=== PATIENT | female | born 1985 | race American Indian/Alaskan Native ===

== ENCOUNTER 2018-03-20 09:44 | Observation (INO) | payer MEDICAID ==
[2018-03-20] MEDS ORDERED: COLACE PO PRN (09:53)
[2018-03-20] MEDS ORDERED: TYLENOL PO PRN (09:53)
[2018-03-20] MEDS ORDERED: ZOFRAN IV PRN (09:53)
[2018-03-20] MEDS ORDERED: PRENATAL VITAMIN PO SCH (10:00)
[2018-03-20 10:52] LABS: Basophils % (Auto) 0.3 % (0.0-1.8); Eosinophils # (Auto) 0.1 K/mm3 (0.0-0.4); Eosinophils % (Auto) 1.3 % (0.0-4.3); Hematocrit 30.6 % (30.3-42.9); Lymphocytes # (Auto) 1.5 K/mm3 (1.2-5.4); Lymphocytes % (Auto) 22.9 % (13.4-35.0); Mean Corpuscular HGB Conc 33 % (30-34); Mean Corpuscular Volume 77 fl (79-97); Monocytes # (Auto) 0.6 K/mm3 (0.0-0.8); Monocytes % (Auto) 9.4 % (0.0-7.3); Platelet Count 235 K/mm3 (140-440); Red Blood Count 3.97 M/mm3 (3.65-5.03); Red Cell Distribution Width 15.2 % (13.2-15.2)
[2018-03-20 10:57] LABS: Mean Corpuscular Hemoglobin 25 pg (28-32)
[2018-03-20 11:07] VITALS: BP 131/79
[2018-03-20] MEDS: LACTATED RINGERS 1,000 ML IV SCH ×2 (11:24→12:22)
--- NOTE | 2018-03-21 07:22 | Ultrasound Report ---
BIOPHYSICAL PROFILE: INDICATION: well being. COMPARISON: None similar at this institution. TECHNIQUE: Transabdominal ultrasound with Doppler interrogation. 2 - breathing movements 2 - movements 2 - posture and tone 2 - Qualitative amniotic fluid volume 8 - TOTAL SCORE OF POSSIBLE 8 Heart Rate (bpm) 136 CONCLUSION: Findings, as above.
== END 2018-03-20 14:33 | disposition home or self-care (01) ==
LOC: INTOOBSV 09:44 → LD 09:44
PROVIDERS: ADMIT Obstetrics & Gynecology; ATTEND Obstetrics & Gynecology
DX: O11.3 Pre-existing hypertension with pre-eclampsia, third trimester (principal); Z3A.37 37 weeks gestation of pregnancy
CPT/HCPCS: 36415; 59025; 76819; 85025; 86850; 86900; 86901; 96360; 96361; G0378; G0379; J7120

== ENCOUNTER 2018-03-30 20:34 | Inpatient (IN) | payer MEDICAID ==
[2018-03-30] MEDS ORDERED: ePHEDrine SULFATE IV PRN (20:46)
[2018-03-30] MEDS ORDERED: XYLOCAINE 2% INFILTRATI ONE (20:46)
[2018-03-30] MEDS ORDERED: CERVIDIL VG ONE (20:46)
[2018-03-30] MEDS ORDERED: ZOFRAN IV PRN (20:46)
[2018-03-30] MEDS ORDERED: BRETHINE SUB-Q PRN (20:46)
[2018-03-30] MEDS ORDERED: MINERAL OIL PO PRN (20:46)
[2018-03-30] MEDS ORDERED: PITOCin/NS 20 UNIT/1000ML DRIP 20 UNITS/1,000 ML BAG IV SCH (21:00)
[2018-03-30] MEDS: NORMODYNE PO SCH (22:05)
[2018-03-30 22:09] LABS: Hematocrit 27.6 % (30.3-42.9); Hemoglobin 9.3 gm/dl (10.1-14.3); Mean Corpuscular HGB Conc 34 % (30-34); Mean Corpuscular Volume 76 fl (79-97); Platelet Count 232 K/mm3 (140-440); Red Blood Count 3.64 M/mm3 (3.65-5.03); Red Cell Distribution Width 15.2 % (13.2-15.2)
[2018-03-30 22:19] LABS: Mean Corpuscular Hemoglobin 26 pg (28-32)
[2018-03-30 22:26] LABS: Alanine Aminotransferase 6 units/L (7-56)
[2018-03-30 22:47] LABS: Bacteria,Urine 1+ /HPF (Negative); Bilirubin,Urine NEG (Negative); Blood,Urine NEG (Negative); Color,Urine Yellow (Yellow); Mucus,Urine FEW /HPF; Protein,Urine <15 mg/dL mg/dL (Negative)
[2018-03-30 23:04] LABS: Uric Acid 4.6 mg/dL (3.5-7.6)
[2018-03-31] MEDS: AMBIEN PO PRN ×2 (00:27→22:19)
--- NOTE | 2018-03-31 06:40 | History and Physical Report ---
History of Present Illness Date of examination: 03/31/18 (pt presents for IOL CHtn) Date of admission: 03/30/18 20:34 History of present illness: EDC Confirmation: 04/07/2018 Gestational Age: 11 3/7 weeks Past History : 4 Term Births: 3 Living Children: 3 Para: 3 # 1 Delivery date: 07/20/2003 Weeks Gestation: 40 Delivery type: Anesthesia type: epidural Delivery location: [facility] [place] Infant Sex: Female weight: 7-8 # 2 Delivery date: 06/22/2004 Weeks Gestation: 40 Delivery type: Anesthesia type: none Delivery location: [facility] Sex: Female weight: 7-6 # 3 Delivery date: 03/07/2006 Weeks Gestation: 40 Delivery type: Anesthesia type: none Delivery location: [facility] [place] Infant Sex: Male Past Medical History: HTN--dx 2016, was on Lorsaten High choles--was on Lipitor Past Surgical History: negative Past Medical History Anesthesia Complications: negative Anemia: negative Autoimmune Disorder: negative Bleeding Disorder: negative Blood Transfusions: negative Breast Disease: negative Diabetes: negative Heart Disease: negative Hypertension: negative Hepatitis/Liver Disease: negative Kidney Disease/UTI: negative Neurologic/Epilepsy/Migraines: negative Phlebitis/Varicosities: negative Psychiatric: negative Pulmonary Disease/Asthma: negative Thyroid Disease: negative Hospitalizations: negative Surgery (Non-order entry representative): negative Abnormal PAP: negative ESTEFANÍA Exposure: negative Infertility: negative Uterine Anomaly: negative Uterine Surgery (not C/S): negative Other Gynecologic Problems: negative Infection History Hx of STD: none HIV Risk Eval: low risk Hepatitis B Risk Eval: low risk Personal hx. of genital herpes: no Partner hx. of genital herpes: no Rash, Viral, or Febrile illness since last LMP? no Varicella/Chicken Pox Status: Unknown TB Risk: no Genetic History Congenital Heart Defect: Mom: yes Dad: no Comments: daughter repaired VSD Alexandra Disease: Mom: no Dad: no Thalassemia Mom: no Dad: no Neural Tube Defect Mom: no Dad: no Down's Syndrome Mom: no Dad: no Jamir-Sachs Mom: no Dad: no Sickle Cell Disease/Trait Mom: no Dad: no Hemophilia Mom: no Dad: no Muscular Dystrophy Mom: no Dad: no Cystic Fibrosis Mom: no Dad: no Shane Chorea Mom: no Dad: no Mental Retardation Mom: no Dad: no Fragile X Mom: no Dad: no Other Genetic/Chromosomal Disorder Mom: no Dad: no Child w/other defect Mom: yes Dad: no Comments: nephew undescended testis, darryl gray Comments/Counseling: ambiguous gentalia mat nephew Enviromental Exposures Xray Exposure: no Medication, drug, or alcohol use since LMP: no Chemical/Other Exposure: no Exposure to Cat Liter: no Hx of Parvovirus (Fifth Disease): no Current Allergies (reviewed today): No known allergies Past History - Obstetrical History Expected Date of Delivery: 04/07/18 Actual Gestation: 39 Week(s) 0 Day(s) : 4 Para: 3 Hx # Term Pregnancies: 3 Number of Living Children: 3 Medications and Allergies Allergies Allergy/AdvReac Type Severity Reaction Status Date / Time No Known Allergies Allergy Verified 03/20/18 10:43 Home Medications Medication Instructions Recorded Confirmed Last Taken Type Aspirin 81 mg PO QDAY 03/30/18 03/30/18 03/30/18 10:00 History Labetalol [Normodyne] 200 mg PO BID 03/30/18 03/30/18 03/30/18 10:00 History Pnv 29-1 Tablet 1 tab PO QDAY 03/30/18 03/30/18 03/30/18 10:00 History Active Meds: Active Medications Ephedrine Sulfate (Ephedrine Sulfate) 10 mg IV Q2M PRN PRN Reason: Hypotension Lactated Ringer's (Lactated Ringers) 1,000 mls @ 125 mls/hr IV DIRECT NESTOR Oxytocin/Sodium Chloride (Pitocin/Ns 20 Unit/1000ml Drip) 20 units in 1,000 mls @ 125 mls/hr IV DIRECT NESTOR Oxytocin/Sodium Chloride (Pitocin/Ns 30 Unit/500ml) 30 units in 500 mls @ 4 mls /hr IV TITR NESTOR; Protocol Labetalol HCl (Normodyne) 200 mg PO BID NESTOR Last Admin: 03/30/18 22:05 Dose: 200 mg Mineral Oil (Mineral Oil) 30 ml PO QHS PRN PRN Reason: Constipation Ondansetron HCl (Zofran) 4 mg IV Q8H PRN PRN Reason: Nausea And Vomiting Terbutaline Sulfate (Brethine) 0.25 mg SUB-Q ONCE PRN PRN Reason: Hyperstimulation/Hypertonicity Zolpidem Tartrate (Ambien) 10 mg PO QHS PRN PRN Reason: Insomnia Last Admin: 03/31/18 00:27 Dose: 10 mg - Vital Signs Vital signs: Vital Signs Pulse BP 94 H 134/84 03/30/18 21:17 03/30/18 21:17 Temp Pulse Resp BP Pulse Ox 98.2 F 63 18 128/78 78 L 03/30/18 21:48 03/31/18 00:54 03/30/18 21:48 03/30/18 23:50 03/31/18 00:54 - Physical Exam Breasts: Positive: deferred Cardiovascular: Regular rate, Normal S1, Normal S2 Lungs: Positive: Normal air movement Abdomen: Positive: normal appearance, soft, normal bowel sounds. Negative: distention, tenderness Vulva: both: normal Vagina: Positive: normal moisture. Negative: discharge Cervix: Negative: lesion, discharge Uterus: Positive: normal size, normal contour Adnexa: both: normal Anus/Rectum: Positive: normal perianal skin, heme negative. Negative: rectal mass, hemorrhoids Extremities: Positive: edema Deep Tendon Reflex Grade: Normal +2 - Obstetrical FHR: category 1 Uterine Contraction Monitor Mode: External Cervical Dilatation: 0 (cervidil) Cervical Effacement Percentage: 0 station: -3 Uterine Contraction Pattern: Irregular Uterine Contraction Intensity: Mild Results Result Diagrams: 03/30/18 21:47 03/30/18 21:47 Abnormal lab results 03/30/18 03/30/18 Range/Units 21:47 21:47 RBC 3.64 L (3.65-5.03) M/mm3 Hgb 9.3 L (10.1-14.3) gm/dl Hct 27.6 L (30.3-42.9) % MCV 76 L (79-97) fl MCH 26 L (28-32) pg Creatinine 0.5 L (0.7-1.2) mg/dL ALT 6 L (7-56) units/L Lactate Dehydrogenase 201 H (91-180) units/L All other labs normal. Strep Gp B SRIKANTH Negative February IOB labs done in office 09/19/17 HBsAg Screen Negative Negative *1 RPR Non Reactive Non Reactive *2 Rubella Antibodies, IgG 2.30 index Immune >0.99 *3 Non-immune <0.90 Equivocal 0.90 - 0.99 Immune >0.99 ABO Grouping O *4 Rh Factor Positive *5 Please note: Prior records for this patient's ABO / Rh type are not available for additional verification. Antibody Screen Negative Negative *6 WBC 8.2 x10E3/uL 3.4-10.8 *7 RBC 4.64 x10E6/uL 3.77-5.28 *8 Hemoglobin 12.7 g/dL 11.1-15.9 *9 Hematocrit 37.6 % 34.0-46.6 *10 MCV 81 fL 79-97 *11 MCH 27.4 pg 26.6-33.0 *12 MCHC 33.8 g/dL 31.5-35.7 *13 RDW 14.5 % 12.3-15.4 *14 Platelets 268 x10E3/uL 150-379 *15 Neutrophils 70 % Not Estab. *16 Lymphs 22 % Not Estab. *17 Monocytes 7 % Not Estab. *18 Eos 1 % Not Estab. *19 Basos 0 % Not Estab. *20 ! Immature Cells <No Reported Value> *21 Neutrophils (Absolute) 5.7 x10E3/uL 1.4-7.0 *22 Lymphs (Absolute) 1.8 x10E3/uL 0.7-3.1 *23 Monocytes(Absolute) 0.6 x10E3/uL 0.1-0.9 *24 Eos (Absolute) 0.1 x10E3/uL 0.0-0.4 *25 Baso (Absolute) 0.0 x10E3/uL 0.0-0.2 *26 ! Immature Granulocytes 0 % Not Estab. *27 ! Immature Grans (Abs) 0.0 x10E3/uL 0.0-0.1 *28 ! NRBC <No Reported Value> *29 Hematology Comments: <No Reported Value> *30 Tests: (2) SMN1 Copy Number Analysis ([id number]) ! Genetic Counselor: Not applicable *31 ! Client Specimen ID: Not applicable *32 ! Specimen Type: SPRCS *33 Peripheral Blood ! Specimen(s) Received: SPRCS *34 1 - Yellow (ACD) 10 ml round bottom tube(s) ! Clinical Data: SPRCS *35 Not Provided ! Ethnicity: SPR *36 Not Provided ! SMA Results: SPRCS *37 SMN1 copy number: 2 (Reduced Carrier Risk) ! Tests: (3) Cystic Fibrosis Profile ([id number]) ! CF, Screen Comment: *45 RESULTS: Negative for 32 mutations analyzed Tests: (4) Chlamydia/GC Amplification ([id number]) Chlamydia trachomatis, SRIKANTH Negative Negative *47 Neisseria gonorrhoeae, SRIKANTH Negative Negative *48 Tests: (5) HB Solu + Rflx Frac (227649) Hemoglobin (Hgb) Solubility Negative Negative *49 Tests: (6) Panel 025098 (030744) HIV Screen 4th Generation wRfx Non Reactive Non Reactive *50 Tests: (7) Varicella-Zoster V Ab, IgG (290057) ! Varicella Zoster IgG [L] <135 index Immune >165 *51 Negative <135 Equivocal 135 - 165 Positive >165 A positive result generally indicates exposure to the pathogen or administration of specific immunoglobulins, but it is not indication of active infection or stage of disease. Tests: (8) HCV Ab w/Rflx to Verification ([id number]) ! HCV Ab <0.1 s/co ratio 0.0-0.9 *52 Tests: (9) Comment: ([id number]) ! Comment: SPRCS *53 Non reactive HCV antibody screen is consistent with no HCV infection, unless recent infection is suspected or other evidence exists to indicate HCV infection. Tests: (10) Urine Culture, Routine ([id number]) Urine Culture, Routine Final report *54 Tests: (11) Result ([id number]) ! Result 1 No growth *55 Assessment and Plan - Patient Problems (1) Hypertension Onset Date: ~03/31/18 Current Visit: Yes Status: Acute Qualifiers: Hypertension type: essential hypertension Qualified Code(s): I10 - Essential (primary) hypertension Plan to address problem: 32yo @ 39 weeks here for IOL due to chronic hypertension. Will continue Labetalol 200mg po BID Close monitoring of blood pressures P: Will start pitocin per protocol after removal of cervidil. AM care and diet. to be consulted. (2) 39 weeks gestation of Onset Date: ~03/31/18 Current Visit: Yes Status: Acute
[2018-03-31] MEDS ORDERED: PITOCin/NS 30 UNIT/500ML 30 UNITS/500 ML BAG IV SCH (08:00)
--- NOTE | 2018-03-31 10:46 | Event Note ---
Date: 03/31/18 (will place second cervidil) Consulted with . Cervidil to be removed @ 1200 Will allow diet and ambulation. Plan will be to place 2nd cervidil unless there is significant cervical chg. Pt aware and agrees to POC Pt is aware of serial nature of induction.
[2018-03-31] MEDS: NORMODYNE PO SCH ×2 (11:22→22:19)
[2018-03-31] MEDS ORDERED: CERVIDIL VG ONE (13:00)
--- NOTE | 2018-03-31 16:12 | Event Note ---
Date: 03/31/18 (resting No c/o voiced) Pt and in room Discussed again multi day possibility of IOL. No cervical chg 2nd cervidil in place Will re-eval when removed @ 0100. Encouraged to be OOB in chair. Will have dinner and PM care later this evening. All questions addressed.
[2018-04-01] MEDS ORDERED: PITOCin/NS 30 UNIT/500ML 30,000 MILLIUNITS/500 ML BAG IV ONE (00:57)
[2018-04-01] MEDS ORDERED: PITOCin/NS 30 UNIT/500ML 30 UNITS/500 ML BAG IV SCH (02:00)
[2018-04-01] MEDS: LACTATED RINGERS 1,000 ML IV SCH ×3 (02:27→10:19)
[2018-04-01] MEDS: PITOCin/NS 30 UNIT/500ML 30 UNITS/500 ML BAG IV SCH ×3 (07:31→11:00)
--- NOTE | 2018-04-01 07:36 | Progress Note ---
Assessment and Plan pt resting VSS BP 146/82 Cat 1 strip CTX q4-6 Pit @ 4mu SVE 3,70,-1 Will begin protocol pit Pt unsure for desire for pain mgt made aware Re-eval as needed - Patient Problems (1) Hypertension Onset Date: ~03/31/18 Current Visit: Yes Status: Acute Qualifiers: Hypertension type: essential hypertension Qualified Code(s): I10 - Essential (primary) hypertension (2) 39 weeks gestation of Onset Date: ~03/31/18 Current Visit: Yes Status: Acute Subjective - Subjective Date of service: 04/01/18 (resting No complaints) Principal diagnosis: IUP @ 39w1d CHTN IOL Interval history: EDC Confirmation: 04/07/2018 Gestational Age: 11 3/7 weeks Past History : 4 Term Births: 3 Living Children: 3 Para: 3 # 1 Delivery date: 07/20/2003 Weeks Gestation: 40 Delivery type: Anesthesia type: epidural Delivery location: [facility] [place] Infant Sex: Female weight: 7-8 # 2 Delivery date: 06/22/2004 Weeks Gestation: 40 Delivery type: Anesthesia type: none Delivery location: [facility] Sex: Female weight: 7-6 # 3 Delivery date: 03/07/2006 Weeks Gestation: 40 Delivery type: Anesthesia type: none Delivery location: [facility] [place] Sex: Male Past Medical History: HTN--dx 2017, was on Lorsaten High choles--was on Lipitor Past Surgical History: negative Past Medical History Anesthesia Complications: negative Anemia: negative Autoimmune Disorder: negative Bleeding Disorder: negative Blood Transfusions: negative Breast Disease: negative Diabetes: negative Heart Disease: negative Hypertension: negative Hepatitis/Liver Disease: negative Kidney Disease/UTI: negative Neurologic/Epilepsy/Migraines: negative Phlebitis/Varicosities: negative Psychiatric: negative Pulmonary Disease/Asthma: negative Thyroid Disease: negative Hospitalizations: negative Surgery (Non-terminal gauger supervisor): negative Abnormal PAP: negative ESTEFANÍA Exposure: negative Infertility: negative Uterine Anomaly: negative Uterine Surgery (not C/S): negative Other Gynecologic Problems: negative Infection History Hx of STD: none HIV Risk Eval: low risk Hepatitis B Risk Eval: low risk Personal hx. of genital herpes: no Partner hx. of genital herpes: no Rash, Viral, or Febrile illness since last LMP? no Varicella/Chicken Pox Status: Unknown TB Risk: no Genetic History Congenital Heart Defect: Mom: yes Dad: no Comments: daughter repaired VSD Alexandra Disease: Mom: no Dad: no Thalassemia Mom: no Dad: no Neural Tube Defect Mom: no Dad: no Down's Syndrome Mom: no Dad: no Jamir-Sachs Mom: no Dad: no Sickle Cell Disease/Trait Mom: no Dad: no Hemophilia Mom: no Dad: no Muscular Dystrophy Mom: no Dad: no Cystic Fibrosis Mom: no Dad: no Shane Chorea Mom: no Dad: no Mental Retardation Mom: no Dad: no Fragile X Mom: no Dad: no Other Genetic/Chromosomal Disorder Mom: no Dad: no Child w/other defect Mom: yes Dad: no Comments: nephew undescended testis, darryl gray Comments/Counseling: ambiguous gentalia mat nephew Enviromental Exposures Xray Exposure: no Medication, drug, or alcohol use since LMP: no Chemical/Other Exposure: no Exposure to Cat Liter: no Hx of Parvovirus (Fifth Disease): no Current Allergies (reviewed today): No known allergies Patient reports: movement normal Objective - Vital Signs Vital Signs: Vital Signs - 12hr 03/31/18 03/31/18 03/31/18 20:00 20:12 20:21 Temperature Pulse Rate 91 H 74 Respiratory Rate Blood Pressure 138/86 O2 Sat by Pulse 0 L 60 L Oximetry 03/31/18 03/31/18 03/31/18 20:44 21:29 21:39 Temperature Pulse Rate 106 H 94 H 64 Respiratory Rate Blood Pressure 122/85 136/88 O2 Sat by Pulse 0 L Oximetry 03/31/18 03/31/18 03/31/18 22:15 22:19 22:49 Temperature Pulse Rate 96 H 96 H Respiratory Rate Blood Pressure 128/78 128/78 O2 Sat by Pulse 87 Oximetry 03/31/18 03/31/18 04/01/18 22:59 23:45 00:27 Temperature 98.5 F Pulse Rate 94 H 94 H Respiratory 20 Rate Blood Pressure 121/67 119/63 O2 Sat by Pulse Oximetry 04/01/18 04/01/18 04/01/18 00:30 00:33 00:57 Temperature Pulse Rate 93 H 54 L Respiratory Rate Blood Pressure 142/83 O2 Sat by Pulse 72 L 68 L Oximetry 04/01/18 04/01/18 04/01/18 02:27 02:32 02:37 Temperature Pulse Rate 87 91 H 92 H Respiratory Rate Blood Pressure 128/74 O2 Sat by Pulse 96 97 98 Oximetry 04/01/18 04/01/18 04/01/18 02:42 02:47 02:52 Temperature Pulse Rate 89 87 87 Respiratory Rate Blood Pressure O2 Sat by Pulse 97 96 97 Oximetry 04/01/18 04/01/18 04/01/18 02:54 02:57 03:00 Temperature Pulse Rate 87 85 83 Respiratory Rate Blood Pressure O2 Sat by Pulse 93 96 91 Oximetry 04/01/18 04/01/18 04/01/18 03:02 03:07 03:10 Temperature Pulse Rate 89 84 86 Respiratory Rate Blood Pressure O2 Sat by Pulse 98 98 93 Oximetry 04/01/18 04/01/18 04/01/18 03:12 03:15 03:17 Temperature Pulse Rate 90 85 94 H Respiratory Rate Blood Pressure O2 Sat by Pulse 97 92 100 Oximetry 04/01/18 04/01/18 04/01/18 03:20 03:22 03:27 Temperature Pulse Rate 90 93 H 88 Respiratory Rate Blood Pressure 138/89 O2 Sat by Pulse 96 96 Oximetry 04/01/18 04/01/18 04/01/18 03:29 03:32 03:34 Temperature Pulse Rate 86 89 87 Respiratory Rate Blood Pressure O2 Sat by Pulse 94 96 93 Oximetry 04/01/18 04/01/18 04/01/18 03:37 03:40 03:42 Temperature Pulse Rate 87 91 H 90 Respiratory Rate Blood Pressure O2 Sat by Pulse 95 92 97 Oximetry 04/01/18 04/01/18 04/01/18 03:45 03:47 03:52 Temperature Pulse Rate 92 H 95 H 86 Respiratory Rate Blood Pressure O2 Sat by Pulse 90 92 99 Oximetry 04/01/18 04/01/18 04/01/18 03:57 04:00 04:02 Temperature Pulse Rate 92 H 89 93 H Respiratory Rate Blood Pressure O2 Sat by Pulse 97 94 98 Oximetry 04/01/18 04/01/18 04/01/18 04:07 04:12 04:16 Temperature 98.7 F Pulse Rate 87 85 Respiratory 18 Rate Blood Pressure O2 Sat by Pulse 98 96 Oximetry 04/01/18 04/01/18 04/01/18 04:17 04:20 04:22 Temperature Pulse Rate 87 87 85 Respiratory Rate Blood Pressure 138/89 O2 Sat by Pulse 97 98 Oximetry 04/01/18 04/01/18 04/01/18 04:27 04:28 04:33 Temperature Pulse Rate 88 91 H 87 Respiratory Rate Blood Pressure O2 Sat by Pulse 98 90 96 Oximetry 04/01/18 04/01/18 04/01/18 04:38 04:39 04:43 Temperature Pulse Rate 87 87 87 Respiratory Rate Blood Pressure O2 Sat by Pulse 96 94 96 Oximetry 04/01/18 04/01/18 04/01/18 04:44 04:48 04:52 Temperature Pulse Rate 85 85 84 Respiratory Rate Blood Pressure O2 Sat by Pulse 93 97 91 Oximetry 04/01/18 04/01/18 04/01/18 04:53 04:58 05:03 Temperature Pulse Rate 85 87 83 Respiratory Rate Blood Pressure O2 Sat by Pulse 97 96 99 Oximetry 04/01/18 04/01/18 04/01/18 05:08 05:09 05:13 Temperature Pulse Rate 89 79 92 H Respiratory Rate Blood Pressure O2 Sat by Pulse 95 91 94 Oximetry 04/01/18 04/01/18 04/01/18 05:14 05:18 05:19 Temperature Pulse Rate 89 87 83 Respiratory Rate Blood Pressure 131/82 O2 Sat by Pulse 94 96 94 Oximetry 04/01/18 04/01/18 04/01/18 05:23 05:24 05:28 Temperature Pulse Rate 85 87 87 Respiratory Rate Blood Pressure O2 Sat by Pulse 98 89 97 Oximetry 04/01/18 04/01/18 04/01/18 05:33 05:38 05:43 Temperature Pulse Rate 93 H 91 H 96 H Respiratory Rate Blood Pressure O2 Sat by Pulse 98 97 97 Oximetry 04/01/18 04/01/18 04/01/18 05:48 05:53 05:58 Temperature Pulse Rate 90 91 H 91 H Respiratory Rate Blood Pressure O2 Sat by Pulse 97 97 97 Oximetry 04/01/18 04/01/18 04/01/18 06:03 06:08 06:13 Temperature Pulse Rate 98 H 89 93 H Respiratory Rate Blood Pressure O2 Sat by Pulse 96 98 97 Oximetry 04/01/18 04/01/18 04/01/18 06:18 06:20 06:22 Temperature Pulse Rate 90 90 105 H Respiratory Rate Blood Pressure 134/84 O2 Sat by Pulse 97 74 L Oximetry 04/01/18 04/01/18 04/01/18 06:25 06:30 06:35 Temperature Pulse Rate 53 L 92 H 95 H Respiratory Rate Blood Pressure O2 Sat by Pulse 97 98 97 Oximetry 04/01/18 04/01/18 04/01/18 06:40 06:45 06:50 Temperature Pulse Rate 89 93 H 92 H Respiratory Rate Blood Pressure O2 Sat by Pulse 92 99 96 Oximetry 04/01/18 04/01/18 04/01/18 06:53 06:55 07:20 Temperature Pulse Rate 86 96 H 97 H Respiratory Rate Blood Pressure 142/86 O2 Sat by Pulse 94 98 Oximetry - Exam Breasts: deferred Cardiovascular: Regular rate Lungs: Normal air movement Abdomen: Present: normal appearance, soft. Absent: distention, tenderness Uterus: Present: normal FHR: auscultation normal, category 1 Uterine Contraction Monitor Mode: External Cervical Dilatation: 3 Cervical Effacement Percentage: 70 station: -1 Uterine Contraction Pattern: Regular Uterine Contraction Intensity: Moderate Extremities: normal Deep Tendon Reflex Grade: Normal +2 - Labs Labs: Abnormal Labs 03/30/18 03/30/18 21:47 21:47 RBC 3.64 L Hgb 9.3 L Hct 27.6 L MCV 76 L MCH 26 L Creatinine 0.5 L ALT 6 L Lactate Dehydrogenase 201 H Laboratory Results - last 24 hr 03/30/18 21:47 RPR Nonreactive
[2018-04-01] MEDS ORDERED: SUBLIMAZE IV PRN (08:46)
--- NOTE | 2018-04-01 08:50 | Progress Note ---
Assessment and Plan pt tolerating labor well SVE 4,100,-1 Internals placed Minimal clear fluid with ROM. Pit @ 8mu Re-eval as needed. - Patient Problems (1) Hypertension Onset Date: ~03/31/18 Current Visit: Yes Status: Acute Qualifiers: Hypertension type: essential hypertension Qualified Code(s): I10 - Essential (primary) hypertension (2) 39 weeks gestation of Onset Date: ~03/31/18 Current Visit: Yes Status: Acute Subjective - Subjective Date of service: 04/01/18 (pt tolerated procedure well) Principal diagnosis: IUP @ 39w1d CHTN IOL Interval history: EDC Confirmation: 04/07/2018 Gestational Age: 11 3/7 weeks Past History : 4 Term Births: 3 Living Children: 3 Para: 3 # 1 Delivery date: 07/20/2003 Weeks Gestation: 40 Delivery type: Anesthesia type: epidural Delivery location: [facility] [place] Infant Sex: Female weight: 7-8 # 2 Delivery date: 06/22/2004 Weeks Gestation: 40 Delivery type: Anesthesia type: none Delivery location: [facility] Sex: Female weight: 7-6 # 3 Delivery date: 03/07/2006 Weeks Gestation: 40 Delivery type: Anesthesia type: none Delivery location: [facility] [place] Infant Sex: Male Past Medical History: HTN--dx 2016, was on [place] High choles--was on Lipitor Past Surgical History: negative Past Medical History Anesthesia Complications: negative Anemia: negative Autoimmune Disorder: negative Bleeding Disorder: negative Blood Transfusions: negative Breast Disease: negative Diabetes: negative Heart Disease: negative Hypertension: negative Hepatitis/Liver Disease: negative Kidney Disease/UTI: negative Neurologic/Epilepsy/Migraines: negative Phlebitis/Varicosities: negative Psychiatric: negative Pulmonary Disease/Asthma: negative Thyroid Disease: negative Hospitalizations: negative Surgery (Non-wreath and garland maker hand): negative Abnormal PAP: negative ESTEFANÍA Exposure: negative Infertility: negative Uterine Anomaly: negative Uterine Surgery (not C/S): negative Other Gynecologic Problems: negative Infection History Hx of STD: none HIV Risk Eval: low risk Hepatitis B Risk Eval: low risk Personal hx. of genital herpes: no Partner hx. of genital herpes: no Rash, Viral, or Febrile illness since last LMP? no Varicella/Chicken Pox Status: Unknown TB Risk: no Genetic History Congenital Heart Defect: Mom: yes Dad: no Comments: daughter repaired VSD Alexandra Disease: Mom: no Dad: no Thalassemia Mom: no Dad: no Neural Tube Defect Mom: no Dad: no Down's Syndrome Mom: no Dad: no Jamir-Sachs Mom: no Dad: no Sickle Cell Disease/Trait Mom: no Dad: no Hemophilia Mom: no Dad: no Muscular Dystrophy Mom: no Dad: no Cystic Fibrosis Mom: no Dad: no [place] Chorea Mom: no Dad: no Mental Retardation Mom: no Dad: no Fragile X Mom: no Dad: no Other Genetic/Chromosomal Disorder Mom: no Dad: no Child w/other defect Mom: yes Dad: no Comments: nephew undescended testis, darryl gray Comments/Counseling: ambiguous gentalia mat nephew Enviromental Exposures Xray Exposure: no Medication, drug, or alcohol use since LMP: no Chemical/Other Exposure: no Exposure to Cat Liter: no Hx of Parvovirus (Fifth Disease): no Current Allergies (reviewed today): No known allergies Patient reports: movement normal Objective - Vital Signs Vital Signs: Vital Signs - 12hr 03/31/18 03/31/18 03/31/18 21:29 21:39 22:15 Temperature Pulse Rate 94 H 64 96 H Respiratory Rate Blood Pressure 136/88 128/78 Blood Pressure [Right] O2 Sat by Pulse 0 L Oximetry 03/31/18 03/31/18 03/31/18 22:19 22:49 22:59 Temperature Pulse Rate 96 H 94 H Respiratory Rate Blood Pressure 128/78 121/67 Blood Pressure [Right] O2 Sat by Pulse 87 Oximetry 03/31/18 04/01/18 04/01/18 23:45 00:27 00:30 Temperature 98.5 F Pulse Rate 94 H 93 H Respiratory 20 Rate Blood Pressure 119/63 142/83 Blood Pressure [Right] O2 Sat by Pulse Oximetry 04/01/18 04/01/18 04/01/18 00:33 00:57 02:27 Temperature Pulse Rate 54 L 87 Respiratory Rate Blood Pressure 128/74 Blood Pressure [Right] O2 Sat by Pulse 72 L 68 L 96 Oximetry 04/01/18 04/01/18 04/01/18 02:32 02:37 02:42 Temperature Pulse Rate 91 H 92 H 89 Respiratory Rate Blood Pressure Blood Pressure [Right] O2 Sat by Pulse 97 98 97 Oximetry 04/01/18 04/01/1804/01/18 02:47 02:52 02:54 Temperature Pulse Rate 87 87 87 Respiratory Rate Blood Pressure Blood Pressure [Right] O2 Sat by Pulse 96 97 93 Oximetry 04/01/18 04/01/18 04/01/18 02:57 03:00 03:02 Temperature Pulse Rate 85 83 89 Respiratory Rate Blood Pressure Blood Pressure [Right] O2 Sat by Pulse 96 91 98 Oximetry 04/01/18 04/01/18 04/01/18 03:07 03:10 03:12 Temperature Pulse Rate 84 86 90 Respiratory Rate Blood Pressure Blood Pressure [Right] O2 Sat by Pulse 98 93 97 Oximetry 04/01/18 04/01/18 04/01/18 03:15 03:17 03:20 Temperature Pulse Rate 85 94 H 90 Respiratory Rate Blood Pressure 138/89 Blood Pressure [Right] O2 Sat by Pulse 92 100 Oximetry 04/01/18 04/01/18 04/01/18 03:22 03:27 03:29 Temperature Pulse Rate 93 H 88 86 Respiratory Rate Blood Pressure Blood Pressure [Right] O2 Sat by Pulse 96 96 94 Oximetry 04/01/18 04/01/18 04/01/18 03:32 03:34 03:37 Temperature Pulse Rate 89 87 87 Respiratory Rate Blood Pressure Blood Pressure [Right] O2 Sat by Pulse 96 93 95 Oximetry 04/01/18 04/01/18 04/01/18 03:40 03:42 03:45 Temperature Pulse Rate 91 H 90 92 H Respiratory Rate Blood Pressure Blood Pressure [Right] O2 Sat by Pulse 92 97 90 Oximetry 04/01/18 04/01/18 04/01/18 03:47 03:52 03:57 Temperature Pulse Rate 95 H 86 92 H Respiratory Rate Blood Pressure Blood Pressure [Right] O2 Sat by Pulse 92 99 97 Oximetry 04/01/18 04/01/18 04/01/18 04:00 04:02 04:07 Temperature Pulse Rate 89 93 H 87 Respiratory Rate Blood Pressure Blood Pressure [Right] O2 Sat by Pulse 94 98 98 Oximetry 04/01/18 04/01/18 04/01/18 04:12 04:16 04:17 Temperature 98.7 F Pulse Rate 85 87 Respiratory 18 Rate Blood Pressure Blood Pressure [Right] O2 Sat by Pulse 96 97 Oximetry 04/01/18 04/01/18 04/01/18 04:20 04:22 04:27 Temperature Pulse Rate 87 85 88 Respiratory Rate Blood Pressure 138/89 Blood Pressure [Right] O2 Sat by Pulse 98 98 Oximetry 04/01/18 04/01/18 04/01/18 04:28 04:33 04:38 Temperature Pulse Rate 91 H 87 87 Respiratory Rate Blood Pressure Blood Pressure [Right] O2 Sat by Pulse 90 96 96 Oximetry 04/01/18 04/01/18 04/01/18 04:39 04:43 04:44 Temperature Pulse Rate 87 87 85 Respiratory Rate Blood Pressure Blood Pressure [Right] O2 Sat by Pulse 94 96 93 Oximetry 04/01/18 04/01/18 04/01/18 04:48 04:52 04:53 Temperature Pulse Rate 85 84 85 Respiratory Rate Blood Pressure Blood Pressure [Right] O2 Sat by Pulse 97 91 97 Oximetry 04/01/18 04/01/18 04/01/18 04:58 05:03 05:08 Temperature Pulse Rate 87 83 89 Respiratory Rate Blood Pressure Blood Pressure [Right] O2 Sat by Pulse 96 99 95 Oximetry 04/01/18 04/01/18 04/01/18 05:09 05:13 05:14 Temperature Pulse Rate 79 92 H 89 Respiratory Rate Blood Pressure Blood Pressure [Right] O2 Sat by Pulse 91 94 94 Oximetry 04/01/18 04/01/18 04/01/18 05:18 05:19 05:23 Temperature Pulse Rate 87 83 85 Respiratory Rate Blood Pressure 131/82 Blood Pressure [Right] O2 Sat by Pulse 96 94 98 Oximetry 04/01/18 04/01/18 04/01/18 05:24 05:28 05:33 Temperature Pulse Rate 87 87 93 H Respiratory Rate Blood Pressure Blood Pressure [Right] O2 Sat by Pulse 89 97 98 Oximetry 04/01/18 04/01/18 04/01/18 05:38 05:43 05:48 Temperature Pulse Rate 91 H 96 H 90 Respiratory Rate Blood Pressure Blood Pressure [Right] O2 Sat by Pulse 97 97 97 Oximetry 04/01/18 04/01/18 04/01/18 05:53 05:58 06:03 Temperature Pulse Rate 91 H 91 H 98 H Respiratory Rate Blood Pressure Blood Pressure [Right] O2 Sat by Pulse 97 97 96 Oximetry 04/01/18 04/01/18 04/01/18 06:08 06:13 06:18 Temperature Pulse Rate 89 93 H 90 Respiratory Rate Blood Pressure Blood Pressure [Right] O2 Sat by Pulse 98 97 97 Oximetry 04/01/18 04/01/18 04/01/18 06:20 06:22 06:25 Temperature Pulse Rate 90 105 H 53 L Respiratory Rate Blood Pressure 134/84 Blood Pressure [Right] O2 Sat by Pulse 74 L 97 Oximetry 04/01/18 04/01/18 04/01/18 06:30 06:35 06:40 Temperature Pulse Rate 92 H 95 H 89 Respiratory Rate Blood Pressure Blood Pressure [Right] O2 Sat by Pulse 98 97 92 Oximetry 04/01/18 04/01/18 04/01/18 06:45 06:50 06:53 Temperature Pulse Rate 93 H 92 H 86 Respiratory Rate Blood Pressure Blood Pressure [Right] O2 Sat by Pulse 99 96 94 Oximetry 04/01/18 04/01/18 04/01/18 06:55 07:20 07:29 Temperature 98.5 F Pulse Rate 96 H 97 H 91 H Respiratory 18 Rate Blood Pressure 142/86 Blood Pressure 128/85 [Right] O2 Sat by Pulse 98 97 Oximetry 04/01/18 04/01/18 04/01/18 07:32 07:37 07:38 Temperature Pulse Rate 94 H 101 H 55 L Respiratory Rate Blood Pressure 128/85 Blood Pressure [Right] O2 Sat by Pulse 98 97 77 L Oximetry 04/01/18 04/01/18 04/01/18 08:21 08:27 08:30 Temperature Pulse Rate 102 H 86 81 Respiratory Rate Blood Pressure 128/86 Blood Pressure [Right] O2 Sat by Pulse 85 80 L Oximetry - Exam Breasts: deferred Cardiovascular: Regular rate Lungs: Normal air movement Abdomen: Present: normal appearance, soft. Absent: distention, tenderness Uterus: Present: normal FHR: auscultation normal, category 1 Uterine Contraction Monitor Mode: Internal Cervical Dilatation: 4 (ROM clear) Cervical Effacement Percentage: 100 (ISE & IUPC placed) station: -1 Uterine Contraction Pattern: Regular Uterine Tone Measurement Phase: Resting Uterine Contraction Intensity: Moderate Extremities: normal Deep Tendon Reflex Grade: Normal +2 - Labs Labs: Abnormal Labs 03/30/18 03/30/18 21:47 21:47 RBC 3.64 L Hgb 9.3 L Hct 27.6 L MCV 76 L MCH 26 L Creatinine 0.5 L ALT 6 L Lactate Dehydrogenase 201 H Laboratory Results - last 24 hr 03/30/18 21:47 RPR Nonreactive
[2018-04-01] MEDS: NORMODYNE PO SCH ×2 (10:04→21:54)
[2018-04-01] MEDS ORDERED: ePHEDrine SULFATE IV PRN (10:45)
[2018-04-01] MEDS ORDERED: NARCAN 2 MG/2 ML IV PRN (10:45)
--- NOTE | 2018-04-01 10:47 | Anesthesia Consultation ---
Anesthesia Consult and Med Hx Date of service: 04/01/18 - Airway Anesthetic Teeth Evaluation: Good ROM Head & Neck: Adequate Mental/Hyoid Distance: Adequate Mallampati Class: Class III Intubation Access Assessment: Possibly Difficult - Pulmonary Exam CTA: Yes - Cardiac Exam Cardiac Exam: RRR - Pre-Operative Health Status ASA Pre-Surgery Classification: ASA3 Proposed Anesthetic Plan: Epidural, Spinal - Pulmonary Hx Smoking: No Hx Asthma: No COPD: No Hx Pneumonia: No - Cardiovascular System Hx Hypertension: Yes - Central Nervous System Hx Seizures: No Hx Psychiatric Problems: No - Endocrine Hx Renal Disease: No Hx End Stage Renal Disease: No Hx Hypothyroidism: No Hx Hyperthyroidism: No - Hematic Hx Anemia: No Hx Sickle Cell Disease: No - Other Systems Hx Alcohol Use: No
--- NOTE | 2018-04-01 10:57 | Progress Note ---
Assessment and Plan Comfortable with epidural SVE 7,100,0 Anticipate delivery - Patient Problems (1) Hypertension Onset Date: ~03/31/18 Current Visit: Yes Status: Acute Qualifiers: Hypertension type: essential hypertension Qualified Code(s): I10 - Essential (primary) hypertension (2) 39 weeks gestation of Onset Date: ~03/31/18 Current Visit: Yes Status: Acute Subjective - Subjective Date of service: 04/01/18 (comfortable with epidural) Principal diagnosis: IUP @ 39w1d CHTN IOL Interval history: EDC Confirmation: 04/07/2018 Gestational Age: 11 3/7 weeks Past History : 4 Term Births: 3 Living Children: 3 Para: 3 # 1 Delivery date: 07/20/2003 Weeks Gestation: 40 Delivery type: Anesthesia type: epidural Delivery location: [facility] Sex: Female weight: 7-8 # 2 Delivery date: 06/22/2004 Weeks Gestation: 40 Delivery type: Anesthesia type: none Delivery location: [facility] Infant Sex: Female weight: 7-6 # 3 Delivery date: 03/07/2006 Weeks Gestation: 40 Delivery type: Anesthesia type: none Delivery location: [facility] Infant Sex: Male Past Medical History: HTN--dx 2017, was on [place] High choles--was on Lipitor Past Surgical History: negative Past Medical History Anesthesia Complications: negative Anemia: negative Autoimmune Disorder: negative Bleeding Disorder: negative Blood Transfusions: negative Breast Disease: negative Diabetes: negative Heart Disease: negative Hypertension: negative Hepatitis/Liver Disease: negative Kidney Disease/UTI: negative Neurologic/Epilepsy/Migraines: negative Phlebitis/Varicosities: negative Psychiatric: negative Pulmonary Disease/Asthma: negative Thyroid Disease: negative Hospitalizations: negative Surgery (Non-restaurant assistant manager): negative Abnormal PAP: negative ESTEFANÍA Exposure: negative Infertility: negative Uterine Anomaly: negative Uterine Surgery (not C/S): negative Other Gynecologic Problems: negative Infection History Hx of STD: none HIV Risk Eval: low risk Hepatitis B Risk Eval: low risk Personal hx. of genital herpes: no Partner hx. of genital herpes: no Rash, Viral, or Febrile illness since last LMP? no Varicella/Chicken Pox Status: Unknown TB Risk: no Genetic History Congenital Heart Defect: Mom: yes Dad: no Comments: daughter repaired VSD Alexandra Disease: Mom: no Dad: no Thalassemia Mom: no Dad: no Neural Tube Defect Mom: no Dad: no Down's Syndrome Mom: no Dad: no Jamir-Sachs Mom: no Dad: no Sickle Cell Disease/Trait Mom: no Dad: no Hemophilia Mom: no Dad: no Muscular Dystrophy Mom: no Dad: no Cystic Fibrosis Mom: no Dad: no [place] Chorea Mom: no Dad: no Mental Retardation Mom: no Dad: no Fragile X Mom: no Dad: no Other Genetic/Chromosomal Disorder Mom: no Dad: no Child w/other defect Mom: yes Dad: no Comments: nephew undescended testis, darryl gray Comments/Counseling: ambiguous gentalia mat nephew Enviromental Exposures Xray Exposure: no Medication, drug, or alcohol use since LMP: no Chemical/Other Exposure: no Exposure to Cat Liter: no Hx of Parvovirus (Fifth Disease): no Current Allergies (reviewed today): No known allergies Patient reports: movement normal Objective - Vital Signs Vital Signs: Vital Signs - 12hr 03/31/18 03/31/18 04/01/18 22:59 23:45 00:27 Temperature 98.5 F Pulse Rate 94 H 94 H Respiratory 20 Rate Blood Pressure 121/67 119/63 Blood Pressure [Right] O2 Sat by Pulse Oximetry 04/01/18 04/01/18 04/01/18 00:30 00:33 00:57 Temperature Pulse Rate 93 H 54 L Respiratory Rate Blood Pressure 142/83 Blood Pressure [Right] O2 Sat by Pulse 72 L 68 L Oximetry 04/01/18 04/01/18 04/01/18 02:27 02:32 02:37 Temperature Pulse Rate 87 91 H 92 H Respiratory Rate Blood Pressure 128/74 Blood Pressure [Right] O2 Sat by Pulse 96 97 98 Oximetry 04/01/18 04/01/18 04/01/18 02:42 02:47 02:52 Temperature Pulse Rate 89 87 87 Respiratory Rate Blood Pressure Blood Pressure [Right] O2 Sat by Pulse 97 96 97 Oximetry 04/01/18 04/01/18 04/01/18 02:54 02:57 03:00 Temperature Pulse Rate 87 85 83 Respiratory Rate Blood Pressure Blood Pressure [Right] O2 Sat by Pulse 93 96 91 Oximetry 04/01/18 04/01/18 04/01/18 03:02 03:07 03:10 Temperature Pulse Rate 89 84 86 Respiratory Rate Blood Pressure Blood Pressure [Right] O2 Sat by Pulse 98 98 93 Oximetry 04/01/18 04/01/18 04/01/18 03:12 03:15 03:17 Temperature Pulse Rate 90 85 94 H Respiratory Rate Blood Pressure Blood Pressure [Right] O2 Sat by Pulse 97 92 100 Oximetry 04/01/18 04/01/18 04/01/18 03:20 03:22 03:27 Temperature Pulse Rate 90 93 H 88 Respiratory Rate Blood Pressure 138/89 Blood Pressure [Right] O2 Sat by Pulse 96 96 Oximetry 04/01/18 04/01/18 04/01/18 03:29 03:32 03:34 Temperature Pulse Rate 86 89 87 Respiratory Rate Blood Pressure Blood Pressure [Right] O2 Sat by Pulse 94 96 93 Oximetry 04/01/18 04/01/18 04/01/18 03:37 03:40 03:42 Temperature Pulse Rate 87 91 H 90 Respiratory Rate Blood Pressure Blood Pressure [Right] O2 Sat by Pulse 95 92 97 Oximetry 04/01/18 04/01/18 04/01/18 03:45 03:47 03:52 Temperature Pulse Rate 92 H 95 H 86 Respiratory Rate Blood Pressure Blood Pressure [Right] O2 Sat by Pulse 90 92 99 Oximetry 04/01/18 04/01/18 04/01/18 03:57 04:00 04:02 Temperature Pulse Rate 92 H 89 93 H Respiratory Rate Blood Pressure Blood Pressure [Right] O2 Sat by Pulse 97 94 98 Oximetry 04/01/18 04/01/18 04/01/18 04:07 04:12 04:16 Temperature 98.7 F Pulse Rate 87 85 Respiratory 18 Rate Blood Pressure Blood Pressure [Right] O2 Sat by Pulse 98 96 Oximetry 04/01/18 04/01/18 04/01/18 04:17 04:20 04:22 Temperature Pulse Rate 87 87 85 Respiratory Rate Blood Pressure 138/89 Blood Pressure [Right] O2 Sat by Pulse 97 98 Oximetry 04/01/18 04/01/18 04/01/18 04:27 04:28 04:33 Temperature Pulse Rate 88 91 H 87 Respiratory Rate Blood Pressure Blood Pressure [Right] O2 Sat by Pulse 98 90 96 Oximetry 04/01/18 04/01/18 04/01/18 04:38 04:39 04:43 Temperature Pulse Rate 87 87 87 Respiratory Rate Blood Pressure Blood Pressure [Right] O2 Sat by Pulse 96 94 96 Oximetry 04/01/18 04/01/18 04/01/18 04:44 04:48 04:52 Temperature Pulse Rate 85 85 84 Respiratory Rate Blood Pressure Blood Pressure [Right] O2 Sat by Pulse 93 97 91 Oximetry 04/01/18 04/01/18 04/01/18 04:53 04:58 05:03 Temperature Pulse Rate 85 87 83 Respiratory Rate Blood Pressure Blood Pressure [Right] O2 Sat by Pulse 97 96 99 Oximetry 04/01/18 04/01/18 04/01/18 05:08 05:09 05:13 Temperature Pulse Rate 89 79 92 H Respiratory Rate Blood Pressure Blood Pressure [Right] O2 Sat by Pulse 95 91 94 Oximetry 04/01/18 04/01/18 04/01/18 05:14 05:18 05:19 Temperature Pulse Rate 89 87 83 Respiratory Rate Blood Pressure 131/82 Blood Pressure [Right] O2 Sat by Pulse 94 96 94 Oximetry 04/01/18 04/01/18 04/01/18 05:23 05:24 05:28 Temperature Pulse Rate 85 87 87 Respiratory Rate Blood Pressure Blood Pressure [Right] O2 Sat by Pulse 98 89 97 Oximetry 04/01/18 04/01/18 04/01/18 05:33 05:38 05:43 Temperature Pulse Rate 93 H 91 H 96 H Respiratory Rate Blood Pressure Blood Pressure [Right] O2 Sat by Pulse 98 97 97 Oximetry 04/01/18 04/01/18 04/01/18 05:48 05:53 05:58 Temperature Pulse Rate 90 91 H 91 H Respiratory Rate Blood Pressure Blood Pressure [Right] O2 Sat by Pulse 97 97 97 Oximetry 04/01/18 04/01/18 04/01/18 06:03 06:08 06:13 Temperature Pulse Rate 98 H 89 93 H Respiratory Rate Blood Pressure Blood Pressure [Right] O2 Sat by Pulse 96 98 97 Oximetry 04/01/18 04/01/18 04/01/18 06:18 06:20 06:22 Temperature Pulse Rate 90 90 105 H Respiratory Rate Blood Pressure 134/84 Blood Pressure [Right] O2 Sat by Pulse 97 74 L Oximetry 04/01/18 04/01/18 04/01/18 06:25 06:30 06:35 Temperature Pulse Rate 53 L 92 H 95 H Respiratory Rate Blood Pressure Blood Pressure [Right] O2 Sat by Pulse 97 98 97 Oximetry 04/01/18 04/01/18 04/01/18 06:40 06:45 06:50 Temperature Pulse Rate 89 93 H 92 H Respiratory Rate Blood Pressure Blood Pressure [Right] O2 Sat by Pulse 92 99 96 Oximetry 04/01/18 04/01/18 04/01/18 06:53 06:55 07:20 Temperature Pulse Rate 86 96 H 97 H Respiratory Rate Blood Pressure 142/86 Blood Pressure [Right] O2 Sat by Pulse 94 98 Oximetry 04/01/18 04/01/18 04/01/18 07:29 07:32 07:37 Temperature 98.5 F Pulse Rate 91 H 94 H 101 H Respiratory 18 Rate Blood Pressure 128/85 Blood Pressure 128/85 [Right] O2 Sat by Pulse 97 98 97 Oximetry 04/01/18 04/01/18 04/01/18 07:38 08:21 08:27 Temperature Pulse Rate 55 L 102 H 86 Respiratory Rate Blood Pressure 128/86 Blood Pressure [Right] O2 Sat by Pulse 77 L 85 Oximetry 04/01/18 04/01/18 04/01/18 08:30 08:56 09:01 Temperature Pulse Rate 81 91 H 96 H Respiratory Rate Blood Pressure 134/78 Blood Pressure [Right] O2 Sat by Pulse 80 L 0 L Oximetry 04/01/18 04/01/18 04/01/18 09:21 10:04 10:08 Temperature Pulse Rate 91 H 89 89 Respiratory Rate Blood Pressure 134/84 142/87 142/87 Blood Pressure [Right] O2 Sat by Pulse Oximetry 04/01/18 04/01/18 04/01/18 10:15 10:18 10:19 Temperature 97.2 F L Pulse Rate 95 H 91 H 99 H Respiratory 18 Rate Blood Pressure Blood Pressure 140/94 [Right] O2 Sat by Pulse 98 85 98 Oximetry 04/01/18 04/01/18 04/01/18 10:20 10:24 10:29 Temperature Pulse Rate 98 H 92 H 86 Respiratory Rate Blood Pressure 140/94 Blood Pressure [Right] O2 Sat by Pulse 98 99 Oximetry 04/01/18 04/01/18 04/01/18 10:34 10:36 10:38 Temperature Pulse Rate 90 84 89 Respiratory Rate Blood Pressure 136/92 139/90 145/89 Blood Pressure [Right] O2 Sat by Pulse 96 92 Oximetry 04/01/18 04/01/18 04/01/18 10:39 10:40 10:42 Temperature Pulse Rate 88 77 80 Respiratory Rate Blood Pressure 130/83 125/83 Blood Pressure [Right] O2 Sat by Pulse 95 Oximetry 04/01/18 04/01/18 04/01/18 10:44 10:46 10:48 Temperature Pulse Rate 86 79 85 Respiratory Rate Blood Pressure 123/83 128/84 136/88 Blood Pressure [Right] O2 Sat by Pulse 97 Oximetry 04/01/18 04/01/18 04/01/18 10:49 10:50 10:52 Temperature Pulse Rate 82 86 82 Respiratory Rate Blood Pressure 138/93 131/83 Blood Pressure [Right] O2 Sat by Pulse 97 Oximetry 04/01/18 04/01/18 04/01/18 10:54 10:56 10:58 Temperature Pulse Rate 85 86 88 Respiratory Rate Blood Pressure 134/82 135/86 137/87 Blood Pressure [Right] O2 Sat by Pulse 97 Oximetry - Exam Breasts: deferred Cardiovascular: Regular rate Lungs: Normal air movement Abdomen: Present: normal appearance, soft. Absent: distention, tenderness Uterus: Present: normal FHR: auscultation normal, category 1 Uterine Contraction Monitor Mode: Internal Cervical Dilatation: 7 Cervical Effacement Percentage: 100 station: 0 Uterine Contraction Pattern: Regular Uterine Tone Measurement Phase: Resting Uterine Contraction Intensity: Moderate Extremities: normal Deep Tendon Reflex Grade: Normal +2 - Labs Labs: Abnormal Labs 03/30/18 03/30/18 21:47 21:47 RBC 3.64 L Hgb 9.3 L Hct 27.6 L MCV 76 L MCH 26 L Creatinine 0.5 L ALT 6 L Lactate Dehydrogenase 201 H Laboratory Results - last 24 hr 03/30/18 21:47 RPR Nonreactive
[2018-04-01] MEDS ORDERED: fentaNYL-BUPIV 2 MCG/ML-0.125% 200 MCG/100 ML BAG EPIDURAL SCH (11:00)
[2018-04-01] MEDS ORDERED: CYTOTEC ONE (12:01)
[2018-04-01] MEDS ORDERED: BENADRYL PO PRN (12:15)
[2018-04-01] MEDS ORDERED: MILK OF MAGNESIA PO PRN (12:15)
[2018-04-01] MEDS ORDERED: DULCOLAX PR PRN (12:15)
[2018-04-01] MEDS ORDERED: TYLENOL PO PRN (12:15)
[2018-04-01] MEDS ORDERED: TUCKS PAD TP PRN (12:15)
[2018-04-01] MEDS ORDERED: PHENERGAN PO PRN (12:15)
[2018-04-01] MEDS ORDERED: LANSINOH TP PRN (12:15)
[2018-04-01] MEDS ORDERED: NORCO 5/325 PO PRN (12:15)
--- NOTE | 2018-04-01 12:40 | Procedure Note ---
OB Delivery Note - Delivery Date of Delivery: 04/01/18 Manager Community Development: JOHN DOYLE Estimated blood loss: 500cc - Vaginal Delivery presentation: vertex Delivery position: OA Intrapartum events: other(please specify) (maternal chronic hypertension) Delivery induction: cervidil Delivery augmentation: pitocin Delivery monitor: internal FHT, internal uterine Route of delivery: Delivery placenta: spontaneous Delivery cord: nuchal cord, 3 umbilical vessels Episiotomy: none Delivery laceration: none Anesthesia: epidural Delivery comments: live born male over intact perineum CAN X 1 delivered through Baby placed on on mom's abdomen skin to skin Cord blood obtained Placenta and membrane del complete and intact, 3 vessel cord Pit IVFs Several lg clots expressed. Cytotec 800mcg IL 8/9, EBL 500, Wgt 6-11 Mom and baby remain LDR stable FF @ umb Lochia mod - Infant A at 1 minute: 8 at 5 minutes: 9 Gender: Male (wgt 6-11)
[2018-04-01] MEDS ORDERED: CYTOTEC PR ONE (13:00)
[2018-04-01] MEDS ORDERED: SODIUM CHLORIDE FLUSH SYRINGE 10 ML IV NR (13:00)
[2018-04-01] MEDS: MOTRIN PO SCH ×2 (15:08→21:23)
[2018-04-01] MEDS ORDERED: MOTRIN ONE (15:10)
[2018-04-01] MEDS: COLACE PO SCH (21:23)
[2018-04-02 06:27] LABS: Hematocrit 23.4 % (30.3-42.9); Hemoglobin 7.5 gm/dl (10.1-14.3)
--- NOTE | 2018-04-02 08:35 | Discharge Summary ---
Providers - Providers Date of Admission: 03/30/18 20:34 Attending physician: JG SANDOVAL Primary care physician: JG SANDOVAL Hospitalization Reason for admission: induction of labor, IUP at term Delivery: Episiotomy: none Laceration: none Other procedures: none complications: none Discharge diagnosis: IUP at term delivered [place] baby: male Hospital course: Patient was admitted for induction for chronic hypertension. Patient had a normal vaginal delivery. Her course was benign. She was afebrile throughout her stay. Her day 1 hematocrit was 23%. Patient without orthostatic symptoms. We'll repeat H&H this morning to insure stable level. Patient desires discharge today we will discharge H&H stable Patient is bottle feeding and plans for tubal ligation. Condition at discharge: Good Disposition: DC-01 TO HOME OR SELFCARE - Discharge Diagnoses (1) 39 weeks gestation of Status: Resolved (2) Hypertension Status: Chronic Qualifiers: Hypertension type: essential hypertension Qualified Code(s): I10 - Essential (primary) hypertension Plan - Provider Discharge Summary Activity: routine, no strenuous exercise Diet: routine Instructions: routine Additional instructions: [] Smoking cessation referral if applicable(refer to patient education folder for contact #) [] Refer to [facility] Call your doctor immediately for: * Fever > 100.5 * Heavy vaginal bleeding ( >1 pad per hour) * Severe persistent headache * Shortness of breath * Reddened, hot, painful area to leg or breast * Drainage or odor from incision. *Patient schedule follow-up in 4 weeks to arrange tubal ligation. Patient also to call office this schedule her son's circumcision Patient will continue her labetalol and follow-up follow-up with her primary care doctor to see if changing her antihypertensive medicine as necessary. - Follow up plan Follow up: JG SANDOVAL MD [Primary Care Provider] - 7 Days
[2018-04-02] MEDS: COLACE PO SCH ×2 (09:02→21:47)
[2018-04-02] MEDS: NORMODYNE PO SCH ×2 (09:02→21:46)
[2018-04-02] MEDS: MOTRIN PO SCH ×3 (09:03→21:49)
[2018-04-02] MEDS ORDERED: BOOSTRIX IM ONE (12:15)
[2018-04-02] MEDS ORDERED: M-M-R II VACCINE SUB-Q ONE (12:15)
[2018-04-02 17:13] LABS: Hematocrit 22.6 % (30.3-42.9); Hemoglobin 7.3 gm/dl (10.1-14.3)
[2018-04-03] MEDS: MOTRIN PO SCH (10:36)
[2018-04-03] MEDS: COLACE PO SCH (10:36)
[2018-04-03] MEDS: NORMODYNE PO SCH (10:36)
[2018-04-03 13:24] VITALS: BP 121/79
== END 2018-04-03 13:00 | disposition home or self-care (01) | DRG 774 ==
LOC: LD 20:34 → OB 04-01 17:05
PROVIDERS: ADMIT Obstetrics & Gynecology; ATTEND Obstetrics & Gynecology
PROC: 10E0XZZ Delivery of Products of Conception, External Approach (ICD-10-PCS; principal; 2018-04-01)
PROC: 3E0P7VZ Introduction of Hormone into Female Reproductive, Via Natural or Artificial Opening (ICD-10-PCS; 2018-04-01)
PROC: 3E0R3BZ Introduction of Anesthetic Agent into Spinal Canal, Percutaneous Approach (ICD-10-PCS; 2018-04-01)
PROC: 00HU33Z Insertion of Infusion Device into Spinal Canal, Percutaneous Approach (ICD-10-PCS; 2018-04-01)
DX: O10.02 Pre-existing essential hypertension complicating childbirth (principal); O69.81X0 Labor and delivery complicated by cord around neck, without compression, not applicable or unspecified; Z3A.39 39 weeks gestation of pregnancy; Z37.0 Single live birth
CPT/HCPCS: 36415; 81001; 82565; 83615; 84450; 84460; 84550; 85014; 85018; 85027; 86592; 86850; 86900; 86901; 88307; J2590; J3010; J7120